=== PATIENT | male | born 1975 | race Caucasian/White ===

== ENCOUNTER 2016-05-07 10:48 | Observation (INO) | payer BC ==
[2016-05-07] MEDS ORDERED: HYDROmorphone HCL 1 MG/ML SYR ONE (11:16)
[2016-05-07] MEDS ORDERED: CYCLOBENZAPRINE HCL 10 MG TABLET PO ONE (11:17)
[2016-05-07] MEDS ORDERED: MAG-AL PLUS XS SUSP 30 ML UDC PO PRN (12:39)
[2016-05-07] MEDS ORDERED: POLYETHYLENE GLYCOL 3350 17 GM POWD.PACK PO PRN (12:39)
[2016-05-07] MEDS ORDERED: HOME MEDICATION LIST NEEDED 1 EA EACH MC ONE (12:39)
[2016-05-07] MEDS ORDERED: ACETAMINOPHEN 325 MG TABLET PO PRN (12:39)
--- NOTE | 2016-05-07 13:45 | ER NURSING DOCUMENTATION ---
Nurse's Notes [facility] Name:Jean-Paul Alejandre Age:40 yrs Sex:Male :1975 Arrival Date:05/07/2016 Time:10:48 Bed5 Private MD: Diagnosis:Acute Back Pain Presentation: 05/07 10:49 Presenting complaint: Presenting complaint: Patient states: pt was moving a matris st yesterday and it hurt his back. pt has significant pain in his lower back shooting into the left leg. 10:49 Transition of care: Home. Care prior to arrival: Medication(s) given: Ibuprofen st Percocet. 10:49 Method Of Arrival: Private Vehicle st 10:59 Acuity: ROBB 2 st Triage Assessment: 10:49 General: Appears uncomfortable, Behavior is cooperative, pt moaning and rocking back st and forth in the bed.. Pain: Complains of pain in back Pain radiates to left leg Pain currently is 10 out of 10 on a pain scale. Pain began yesterday. Neuro: Level of Consciousness is awake, alert, Reports numbness and pain shooting down both legs worst in the left.. Musculoskeletal: pt is able to move all exstremitys. Historical: - Allergies: IODINEIODINE CONTAINING; - Home Meds: 1. None - PMHx: None; - PSHx: neck fussion; - Tetanus: < 10 years. - Ebola Screening: : Patient denies exposure to infectious person. Patient denies travel to an Ebola-affected area in the 21 days before illness onset. . - Social history: Smoking status: Patient states was never smoker of tobacco. Patient uses Patient/guardian denies using alcohol, marijuana. Screenin:31 Infectious Disease Risk None. Abuse screen: Denies threats or abuse. Denies injuries st from another. Nutritional screening: No deficits noted. Assessment: 12:15 General: Lucsinger at bedside for admition.. st 12:47 General: apparently pt is on a bunch of pain meds at home that pt did not share with st me. . 13:43 General: pt is still uncomfortable.. st Vital Signs: 10:49 BP 133 / 66; Pulse 92; Pulse Ox 96% ; Pain 10/10; st 11:54 Pain 10/10; st 13:37 BP 144 / 71; Pulse 106; Pulse Ox 89% on R/A; Pain 10/10; st 11:54 pt reports no change in pain however he is more relaxed and able to do some perpisful st moving. ED Course: 10:49 Patient arrived in ED. ama 10:54 Mack Charlton MD is Attending Physician. nv 10:59 Anitra Gallegos RN is Primary Nurse. st 11:[address] 11:31 Valuables Remains with patient Patient has correct armband on for positive st identification. Bed in low position. Side rails up X2. Warm blanket given. 11:55 Blanquita Ivy MD is Admitting Physician. sc 11:[address] 12:03 Inserted peripheral IV: 20 gauge in left antecubital area and blood collected. st Administered Medications: 11:11 Drug: Flexeril 10 mg; Route: PO; st 12:03 Follow up: Response: Pain is unchanged, physician notified st 11:11 Drug: predniSONE 40 mg; Route: PO; st 12:03 Follow up: Response: Pain is unchanged, physician notified st 11:11 Drug: Dilaudid 3 mg; Route: IM; Site: left gluteus; st 12:03 Follow up: Response: Pain is unchanged, physician notified st Outcome: 11:56 Decision to Admit by Provider. nv 13:43 Admitted to Med/surg accompanied by nurse, via stretcher. st 13:43 Condition: unchanged 13:43 Report given to nolberto HIGH 13:43 Instructed on need to admit 13:45 Patient [address] the ED. st Signatures: Anitra Gallegos RN RN st Mack Charlton MD MD nv Ady Gibson, Reg Reg ama
--- NOTE | 2016-05-07 13:45 | ER PHYSICIAN DOCUMENTATION ---
Physician Documentation [facility] Name:Jean-Paul Alejandre Age:40 yrs Sex:Male :1975 Arrival Date:05/07/2016 Time:10:48 Bed5 Private MD: Mack Pierce Disposition: 05/07/16 11:56 Admit ordered for Blanquita Ivy. Preliminary diagnosis is Acute Back Pain. - Bed requested for Medical/Surgical. - Condition is Serious. - Problem is an acute exacerbation. - Symptoms are unchanged. 23 HR OBS Yes HPI: 05/07 11:43 This 40 yrs old Male presents to ER via Private Vehicle with complaints of sc Back Injury. 11:43 The patient presents with pain that is acute, and an injury. The symptoms are located sc in the lumbar area. Onset: The symptoms/episode began/occurred yesterday. The pain radiates down the patient's right lower extremity. Associated signs and symptoms: The patient has no apparent associated signs or symptoms. The problem was sustained at work, when lifting furniture. Modifying factors: The patient symptoms are alleviated by nothing. Severity of symptoms: At their worst the symptoms were severe. Historical: - Allergies: IODINEIODINE CONTAINING; - Home Meds: 1. None - PMHx: None; - PSHx: neck fussion; - Tetanus: < 10 years. - Ebola Screening: : Patient denies exposure to infectious person. Patient denies travel to an Ebola-affected area in the 21 days before illness onset. . - Social history: Smoking status: Patient states was never smoker of tobacco. Patient uses Patient/guardian denies using alcohol, marijuana. ROS: 11:44 Constitutional: Negative for fever, chills, and weight loss. sc Eyes: Negative for injury, pain, redness, and discharge. Neck: Negative for injury, pain, and swelling. Cardiovascular: Negative for chest pain, palpitations, and edema. Respiratory: Negative for shortness of breath, cough, wheezing, and pleuritic chest pain. MS/Extremity: Negative for injury and deformity. Skin: Negative for injury, rash, and discoloration. 11:44 Neuro: Negative for headache, weakness, numbness, tingling, and seizure. sc 11:44 Back: Positive for injury or acute deformity, pain at rest, pain with movement, radiated pain. Exam: Constitutional: This is a well developed, well nourished patient who is awake, alert, and in no acute distress. Head/Face: Normocephalic, atraumatic. Eyes: Pupils equal round and reactive to light, extra-ocular motions intact. Lids and lashes normal. Conjunctiva and sclera are non-icteric and not injected. Cornea within normal limits. Periorbital areas with no swelling, redness, or edema. ENT: Nares patent. No nasal discharge, no septal abnormalities noted. Tympanic membranes are normal and external auditory canals are clear. Oropharynx with no redness, swelling, or masses, exudates, or evidence of obstruction, uvula midline. Mucous membranes moist. Neck: Trachea midline, no thyromegaly or masses palpated, and no cervical lymphadenopathy. Supple, full range of motion without nuchal rigidity, or vertebral point tenderness. No meningismus. Chest/axilla: Normal chest wall appearance and motion. Nontender with no deformity. No lesions are appreciated. Cardiovascular: Regular rate and rhythm with a normal S1 and S2. No gallops, murmurs, or rubs. Normal PMI, no JVD. No pulse deficits. Respiratory: Lungs have equal breath sounds bilaterally, clear to auscultation and percussion. No rales, rhonchi or wheezes noted. No increased work of breathing, no retractions or nasal flaring. Abdomen/GI: Soft, non-tender, with normal bowel sounds. No distension or tympany. No guarding or rebound. No evidence of tenderness throughout. Neuro: Awake and alert, GCS 15, oriented to person, place, time, and situation. Cranial nerves II-XII grossly intact. Motor strength 5/5 in all extremities. Sensory grossly intact. Cerebellar exam normal. Normal gait. 11:44 Psych: Awake, alert, with orientation to person, place and time. Behavior, mood, and sc affect are within normal limits. 11:44 Back: pain, that is mild, of the lumbar area, ROM is painful, normal spinal alignment noted, CVA tenderness, is absent, Straight leg raises: pain bilaterally. 11:56 Neuro: Sensation: no obvious gross deficits, Gait: shuffling, Deep tendon reflexes are sc 3+ (brisk) in the right patellar, right Achilles, left patellar and left Achilles. Vital Signs: 10:49 BP 133 / 66; Pulse 92; Pulse Ox 96% ; Pain 10/10; st 11:54 Pain 10/10; st 13:37 BP 144 / 71; Pulse 106; Pulse Ox 89% on R/A; Pain 10/10; st 11:54 pt reports no change in pain however he is more relaxed and able to do some perpisful st moving. MDM: 10:54 Patient medically screened. sc 11:45 Differential diagnosis: ruptured disc, spinal injury, sprain. Data reviewed: vital sc signs, nurses notes, radiologic studies, and as a result, I will admit patient. Counseling: I had a detailed discussion with the patient and/or guardian regarding: the historical points, exam findings, and any diagnostic results supporting the discharge/admit diagnosis, lab results, the need for further work-up and treatment in the hospital. Medication response: The patient's symptoms are unchanged despite medication administration, Dilaudid. Dispensed Medications: 11:11 Drug: Flexeril 10 mg; Route: PO; st 12:03 Follow up: Response: Pain is unchanged, physician notified st 11:11 Drug: predniSONE 40 mg; Route: PO; st 12:03 Follow up: Response: Pain is unchanged, physician notified st 11:11 Drug: Dilaudid 3 mg; Route: IM; Site: left gluteus; st 12:03 Follow up: Response: Pain is unchanged, physician notified st Signatures: Anitra Gallegos, RN RN Mack Ojeda MD MD ma
[2016-05-07] MEDS: KETOROLAC TROMETHAMINE 30 MG/ML VIAL IV PRN ×2 (14:10→20:34)
[2016-05-07] MEDS: HYDROmorphone HCL 2 MG TABLET PO PRN ×2 (14:44→20:33)
[2016-05-07] MEDS: LIDOCAINE 5% 1 PATCH PATCH TRANSDERM SCH (14:46)
[2016-05-07] MEDS: CYCLOBENZAPRINE HCL 10 MG TABLET PO PRN (14:48)
[2016-05-07] MEDS ORDERED: HYDROmorphone HCL 1 MG/ML SYR IV PRN (16:24)
[2016-05-07] MEDS ORDERED: HYDROmorphone HCL 1 MG/ML SYR IV ONE (16:30)
[2016-05-07] MEDS ORDERED: NALOXONE HCL 0.4 MG/ML VIAL IV PRN (16:41)
[2016-05-07 18:10] LABS: BASOPHIL# 0.1 X 10^3uL (0.0-0.1); BASOPHILS 0.6 % (0.0-2.0); EOSINOPHILS 0.1 % (0.0-6.0); HEMATOCRIT 49.2 % (42.0-54.0); HEMOGLOBIN 16.9 g/dL (14.0-18.0); LYMPHOCYTES 6.7 % (20.0-40.0); LYMPHOCYTES# 0.7 X 10^3uL (0.8-3.8); MEAN CELL VOLUME 88.5 fL (80.0-100.0); MEAN CORPUS. HGB CONCENTRATION 34.4 g/dL (32.0-36.0); MEAN CORPUSCULAR HEMOGLOBIN 30.5 pg (29.0-35.0); MEAN PLATELET VOLUME 8.6 fL (7.4-10.4); MONOCYTES 0.3 % (2.0-10.0); NEUTROPHILS# 9.6 X 10^3uL (2.6-6.7); PLATELET COUNT 235 X 10^3uL (130-440); RED BLOOD COUNT 5.56 X 10^6uL (4.20-6.10); RED CELL DISTRIBUTION WIDTH 11.2 % (11.5-14.5); WHITE BLOOD COUNT 10.4 X 10^3uL (3.9-10.7)
[2016-05-07 18:18] LABS: ALBUMIN 4.6 g/dL (3.5-5.0); ALKALINE PHOSPHATASE 85 U/L (38-126); ALT 51 U/L (21-72); AST 36 U/L (17-59); BILIRUBIN, DIRECT 0.2 mg/dL (0.0-0.4); BILIRUBIN, TOTAL 0.8 mg/dL (0.2-1.3); BLOOD UREA NITROGEN 17 mg/dL (9-20); CHLORIDE 103 mmol/L (98-107); EST GLOMERULAR FILTRATION RATE > 60 mL/min; GLUCOSE 166 mg/dL (70-100); POTASSIUM 4.3 mmol/L (3.5-5.1); SODIUM 140 mmol/L (137-145); TOTAL PROTEIN 8.3 g/dL (6.3-8.2)
[2016-05-07 18:32] LABS: CALCIUM 9.5 mg/dL (8.4-10.2)
[2016-05-07 18:50] VITALS: O2SAT 90
--- NOTE | 2016-05-07 18:54 | RADIOLOGY REPORT ---
HISTORY: Acute low back pain. COMPARISON: None. FINDINGS: 2 views of the lumbar spine obtained. There is no fracture. There is no listhesis. There is no omid ss displaced fracture. No lytic or sclerotic bone lesions identified. IMPRESSION: Unremarkable lumbar spine x-rays. Final Electronic Signature: This report was electronically signed by Bruno Lopez MD, FACR on 017 6:51 PM. [email or web address] /
[2016-05-07 19:00] LABS: NEUTROPHILS 92.3 % (54.0-75.0)
[2016-05-07] MEDS ORDERED: LORazepam 1 MG TABLET PO SCH (21:00)
[2016-05-07] MEDS ORDERED: REMOVE PATCH 1 PATCH PATCH TRANSDERM SCH (21:00)
--- NOTE | 2016-05-07 21:23 | HISTORY & PHYSICAL ---
DATE OF ADMISSION: 05/07/16 ATTENDING PHYSICIAN: Blanquita Ivy MD CHIEF COMPLAINT: Intractable back pain. HISTORY OF PRESENT ILLNESS: Patient is a 40-year-old male who states that he developed lower back pain after moving some furniture, and he has tried taking Ibuprofen and Percocet that he had on hand without resolution. He states that he is having difficulty walking because of the pain, but he is urinating and moving his bowels normally. In the Emergency Room he has failed to respond to a dose of Prednisone, Flexeril and Dilaudid. He is still complaining of severe pain. He has an underlying history of chronic back pain, as well as a cervical spine fusion. Neurological exam in the Emergency Room has been normal, but the patient does not seem to be able to get up and walk. ALLERGIES: Iodine. MEDICATIONS AT HOME: Patient initially denied any medications other than stating that he had taken some Percocet and Ibuprofen. However, I did enter his data in the [place] prescription drug monitoring program, and found that he regularly takes Ativan at h.s., has been prescribed Morphine sulfate tablets monthly and additionally regularly is prescribed Oxycodone 5 mg tablets every month at 112 count each time. Most concerned that the patient did not bring up these regular prescriptions with me. PAST MEDICAL HISTORY 1. Cervical fusion, which appears to be an anterior intra body fusion with plate and screws at C5, C6. There is a note on x-ray that there is a disc space narrowing at C6-C7. 2. Chronic lower back pain, although the patient states that he is able to go out hiking and remain physically very active. SOCIAL HISTORY: Patient admits to drinking only occasionally. He is a teacher at the [employer]. He is accompanied by a female partner. He is a former smoker who quit 20 years ago, and smoked a pack a day for about 5 years. PAST SURGICAL HISTORY 1. Cervical spine fusion and umbilical hernia repair. FAMILY HISTORY: States that his parents are still living and are in good health. REVIEW OF SYSTEMS: He denies any headache, blurred vision, sore throat, current neck pain, shortness of breath, palpitations, abdominal pain, constipation or diarrhea, melena, hematochezia, dysuria or hematuria, weakness in the legs. He does complain of the back pain as noted. PHYSICAL EXAMINATION VITAL SIGNS: Temperature afebrile. Blood pressure 133/66, pulse 92, O2 saturation 96% on room air. GENERAL: Patient is curled up on his side on the gurney and keeps twitching his feet and appears quite uncomfortable. He is mildly flushed. HEENT: Extraocular movements are intact. Pupils are equal, round and reactive to light. Sclera are mildly injected. Oropharynx is moist. Tongue is midline without tremors. NECK: No jugular venous distention. No bruits. No adenopathy. No thyromegaly. LUNGS: Clear bilaterally. CARDIOVASCULAR: Tachycardic. Hyperdynamic. No murmurs, rubs or gallops appreciated. ABDOMEN: Soft, nontender. Bowel sounds normoactive. No organomegaly. No masses noted. BACK: Patient has some red dwyer bilaterally in the mid thoracic area where he has use daily heating pad. Lower back is tender in the paraspinous area without point tenderness. MUSCULOSKELETAL: Calves are soft. Patient is curling his legs up but is able to move them. He has pain with straight leg raise. NEUROLOGIC: Well oriented. Cranial nerves are grossly intact. Motor strength 5/ 5. Deep tendon reflexes are 1+ in upper extremities, 2+ borderline and 3+ and brisk in the lower extremities. ASSESSMENT AND PLAN 1. Acute on chronic lower back pain. My main concern is that the patient may have a herniated disk. Once we bring his pain under control, I would like to order an MRI of the lumbar spine to assess that possibility. 2. Chronic pain with heavy narcotic medication use. Patient is normally seen by Dr. Javad Schmitz in [place], and seems to be filling his medications regularly from the physician only, and should return there once he is discharged. 3. Deep vein thrombosis prophylaxis. I would like to keep the patient ambulatory , and will use SCDs in bed for the time being. I am concerned that he might need a procedure to help his back, so will not administer any Lovenox. ANALY
[2016-05-08] MEDS: HYDROmorphone HCL 2 MG TABLET PO PRN (03:05)
[2016-05-08] MEDS: CYCLOBENZAPRINE HCL 10 MG TABLET PO PRN ×2 (03:05→08:12)
[2016-05-08] MEDS: KETOROLAC TROMETHAMINE 30 MG/ML VIAL IV PRN ×2 (03:06→08:54)
[2016-05-08] MEDS ORDERED: PANTOPRAZOLE 40 MG TABLET PO SCH (06:30)
--- NOTE | 2016-05-08 08:53 | DC SUMMARY: IM Note ---
Discharge Summary: IM/Peds Provider: Date of Admission: 05/07/16 Admitting Provider: ANTONIO MURPHY MD Attending Provider: ANTONIO MURPHY MD Discharging Provider: ANTONIO MURPHY MD Primary Care Provider: Discharge Date: 05/08/16 Hospital Course: Patient was admitted with severe lumbar back pain after moving furniture. The intention was to assess with MRI after pain control was obtained. However, after admission, I was informed that I could not obtain an MRI over the weekend. My concern is that the patient has herniated a lumbar vertebral disc. He has pain radiating down the posterior right leg. Thus far, it has not been controlled with Prednisone, IV Toradol, Lidocaine Patches and Dilaudid 4mg po (IV once,) every 4 hours. IV dilaudid seems more effective than oral, so I have switched him to that medication. His respirations remain stable. Xrays of the lumbar spine were negative for any acute process. The patient is upset with us for not properly assessing and managing his pain, and has had no relief with these efforts. He is requesting transfer to a facility where MRI can be obtained today. Bowel and bladder function are normal except for some hesitancy of urine at times. - Time Spent with Patient Total time spent providing and/or coordinating discharge services: Time with patient DS: Greater than 30 minutes Discharge - Patient/Caregiver Discharge Instructions Activity Level: As tolerated Diet: Regular Overall discharge status: patient is not back to baseline Disposition: [facility] Discharge Summary Data - Medication History Medication History: Home Medications Ibuprofen [Ibuprofen*] 200 mg PO QID 05/07/16 LORazepam [Ativan*] 1 mg PO DAILY 05/07/16 Morphine Sulfate Cr [Mscontin*] 15 mg PO PRN PRN 05/07/16 oxyCODONE HCL IR [Oxy Ir*] 5 mg PO QID PRN 05/07/16 Inpatient Medications 05/07/16 16:41 Naloxone HCl [Narcan] 0.2 mg IV PRN PRN 05/08/16 08:33 HYDROmorphone HCL [Dilaudid] 4 mg IV Q4H PRN Procedures and tests throughout hospitalization: Completed Imaging Orders 05/07/16 17:00 LUMBOSACRAL SPINE 2-3 VW [id number] [RAD] Urgent Pending Orders 05/07/16 16:41 Naloxone HCl [Narcan] 0.2 mg IV PRN PRN 05/08/16 08:33 HYDROmorphone HCL [Dilaudid] 4 mg IV Q4H PRN Labs on day of discharge: Labs from last 24 hours 05/07/16 18:03 WBC 10.4 RBC 5.56 Hgb 16.9 Hct 49.2 MCV 88.5 D MCH 30.5 MCHC 34.4 RDW 11.2 L Plt Count 235 MPV 8.6 Neutrophils % 92.3 H Lymphocytes % 6.7 L Eosinophils % 0.1 Basophils % 0.6 Neutrophils # 9.6 H Lymphocytes # 0.7 L Monocytes 0.3 L Monocytes # 0.0 L Eosinophils # 0.0 Basophils # 0.1 Sodium 140 Potassium 4.3 Chloride 103 Carbon Dioxide 25 BUN 17 Creatinine 1.0 GFR Calculation > 60 Glucose 166 H Calcium 9.5 Total Bilirubin 0.8 Direct Bilirubin 0.2 AST 36 ALT 51 Alkaline Phosphatase 85 Total Protein 8.3 H Albumin 4.6 IM: Discharge Physical Exam - I&O/Vital Signs I&O: Intake & Output 05/07/16 05/08/16 05/08/16 21:59 05:59 13:59 Intake Total 400 330 Output Total 400 Balance 0 330 Weight 96.5 kg Intake: IV 30 Left Antecubital 30 Oral 400 300 Output: Urine 400 Other: Urine Appearance Clear Urine Color Yellow Voiding Method Urinal # Voids 2 Vital Signs: Last Vital Signs Temp 36.5 C 05/08/16 07:00 Pulse 73 05/08/16 07:00 Resp 18 05/08/16 07:00 BP 110/94 05/08/16 07:00 Pulse Ox 90 05/08/16 07:00 Oxygen Flow Rate 2 Oxygen Delivery Method Room Air - Constitutional General appearance: Present: obese - Head Head exam: Present: normal inspection - Eye Eye exam: Present: conjunctival injection, EOMI Pupils: Present: miosis, PERRL - ENT ENT exam: Present: mucous membranes moist - Neck Neck exam: Present: full ROM. Absent: tenderness - Respiratory Respiratory exam: Present: CTAB - Cardiovascular Cardiovascular exam: Present: RRR - GI/Abdominal GI/Abdominal exam: Present: diminished bowel sounds - Extremities Exam Extremities exam: Present: edema. Absent: calf tenderness - Neurological Exam Neurological exam: Present: abnormal gait (difficulty standing up straight) - Psychiatric Psychiatric exam: Present: flat affect (restless with pain) - Allied Health Notes Allied health notes reviewed: nursing
[2016-05-08] MEDS: HYDROmorphone HCL 1 MG/ML SYR IV PRN ×2 (09:22→12:46)
[2016-05-08] MEDS ORDERED: PANTOPRAZOLE 40 MG TABLET PO ONE (11:00)
[2016-05-08] MEDS: LIDOCAINE 5% 1 PATCH PATCH TRANSDERM SCH (11:14)
[2016-05-08 12:04] VITALS: BP 140/75; PULSE 70; RESP 16; TEMP 98.8
[2016-05-08] MEDS ORDERED: DOCUSATE SODIUM 100 MG CAPSULE PO SCH (21:00)
== END 2016-05-08 09:03 | disposition short-term general hospital (02) ==
LOC: ER 10:48 → IN 13:51
PROVIDERS: ADMIT Internal Medicine; ATTEND Internal Medicine
DX: M54.5 Low back pain (principal); G89.29 Other chronic pain; Z79.899 Other long term (current) drug therapy
CPT/HCPCS: 36415; 72100; 80048; 80076; 85025; 96372; 96374; 96375; 96376; 99285; A0425; A0429; G0378; J1170; J1885; J7512